=== PATIENT | male | born 1930 | race Caucasian/White ===

== ENCOUNTER → 2018-12-18 | Outpatient (CLI) | payer MEDICARE, BC ==
--- NOTE | 2018-12-18 12:46 | Diagnostic Imaging Report ---
INDICATION: Headache, dizziness, and disorientation. TECHNIQUE: Noncontrast brain CT is performed. COMPARISON: There is no prior study for comparison. FINDINGS: There are mild atrophic changes. There are no extra-axial fluid collections. No intracranial hemorrhage. No intracranial mass or mass effect. No midline shift. The ventricles are normal in size and position. There are no acute parenchymal abnormalities in the brain. Calvarial windows appear unremarkable. The mastoid air cells are well aerated. IMPRESSION: Mild atrophic changes with no acute intracranial process. Dictated by: Dictated on workstation # [id number]
== END ==
LOC: RAD FS 12:10
PROVIDERS: ATTEND Family Medicine
DX: G93.89 Other specified disorders of brain (principal); G44.89 Other headache syndrome; R41.0 Disorientation, unspecified
CPT/HCPCS: 70450